=== PATIENT | female | born 1965 | race Hispanic/Latino ===

== ENCOUNTER → 2017-05-01 | Outpatient (CLI) | payer BC | LOC: BICRAD 11:37 | DX: M25.562 Pain in left knee (principal) ==

== ENCOUNTER 2017-05-19 08:17 | Outpatient (CLI) | payer BC | END 2017-05-19 08:18 | disposition home or self-care (01) | LOC: BICMRI 08:17 | PROVIDERS: ATTEND Family Medicine | DX: M25.562 Pain in left knee (principal) ==

== ENCOUNTER 2017-06-05 07:43 | Outpatient (CLI) | payer BC | END 2017-06-05 07:44 | disposition home or self-care (01) | LOC: BICMAMMO 07:43 | PROVIDERS: ATTEND Nurse Practitioner Women's Health | DX: Z12.31 Encounter for screening mammogram for malignant neoplasm of breast (principal) | CPT/HCPCS: 77063; 77067 ==